=== PATIENT | male | born 1995 | race Caucasian/White ===

== ENCOUNTER 2019-07-31 03:41 | Emergency (ER) | payer OTHER ==
[~2019-07-31] VITALS: Ht 167.6 cm; Wt 63.5 kg
[2019-07-31 03:41] VITALS: BP 128/76
--- NOTE | 2019-07-31 03:41 | NUR ---
Pt ambulated to [facility]. Accompanied by [facility].
[2019-07-31 03:49] VITALS: BP 128/76
--- NOTE | 2019-07-31 03:49 | NUR ---
PATIENT BIB [facility] [employer] [facility]. PATIENT EXAMINED BY DR. LOWE. PATIENT MEDICALLY CLEARED AND RELEASED IN CUSTODY IN STABLE CONDITION. ORIGINAL PRE-BOOK FORM GIVEN TO [facility] OFFICER.
== END 2019-07-31 03:49 ==
LOC: MED 03:41
DX: R03.0 Elevated blood-pressure reading, without diagnosis of hypertension (principal); Z02.89 Encounter for other administrative examinations
CPT/HCPCS: 99283